=== PATIENT | male | born 1975 | race American Indian/Alaskan Native ===

== ENCOUNTER → 2025-09-03 | Outpatient (CLI) | payer BC, SELFPAY ==
--- NOTE | 2025-09-03 15:30 | XR_ITS ---
Examination: CT lumbar spine, without contrast. 2-D sagittal reconstructions. 2-D coronal reconstructions. 3-D reconstructions. Date and time of exam: September 03, 2025, 1457 hours INDICATIONS: Low back pain radiating down the right leg 6 months CTDI: vol (mGy): 80.7 DLP: (mGycm): 2804 Technique: Multiple 1.25 mm axial sections of the lumbar spine without intravenous contrast have been obtained. 2-D sagittal and coronal reconstructions have been obtained. 3-D reconstructions have been obtained. Low dose protocols were performed. One or more of the following dose reduction techniques were used; automated exposure control, adjustment of the mA and/or KV according to patient size, use of iterative reconstruction technique. Findings: Satisfactory alignment lumbar vertebral bodies Mild disc narrowing L5-S1 No lumbar fracture No spondylolisthesis Axial images demonstrate no focal lumbar disc protrusion Intact pedicles laminae transverse and posterior spinous processes IMPRESSION: Mild disc narrowing L5-S1 No focal lumbar disc protrusion Consider MRI lumbar spine without contrast follow-up for best assessment of acquired soft tissue spinal stenosis
== END | disposition home or self-care (01) ==
PROVIDERS: PCP Nurse Practitioner Family; Referring Provider Nurse Practitioner Family; Visit Provider Nurse Practitioner Family
DX: M51.370 Other intervertebral disc degeneration, lumbosacral region with discogenic back pain only (principal); M48.07 Spinal stenosis, lumbosacral region
CPT/HCPCS: 72131